=== PATIENT | female | born 1955 | race Caucasian/White ===

== ENCOUNTER 2024-08-17 19:09 | Emergency (ER) | payer OTHER, SELFPAY ==
[2024-08-17 19:16] VITALS: BP 157/95
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
[2024-08-17] MEDS: ADACEL 0.5 ML IM (19:57)
[2024-08-17] MEDS: PERCOCET 5/325 1 TABLET PO (20:10)
== END 2024-08-17 20:24 | disposition home or self-care (01) ==
LOC: EMR 19:09
PROVIDERS: EMERGENCY PHYSICIAN Student in an Organized Health Care Education/Training Program; FAMILY PHYSICIAN Family Medicine
DX: T20.03XA Burn of unspecified degree of chin, initial encounter (principal); X10.1XXA Contact with hot food, initial encounter; Z23 Encounter for immunization; I10 Essential (primary) hypertension
CPT/HCPCS: 99282; 90471; 90715